=== PATIENT | female | born 1985 | race Caucasian/White ===

== ENCOUNTER 2017-11-13 16:02 | Emergency (ER) | payer OTHER ==
[~2017-11-13] VITALS: Ht 165.1 cm; Wt 65.9 kg
[2017-11-13 16:06] VITALS: TEMP 99.1
[2017-11-13 16:48] LABS: COLLECTION METHOD CLEAN CATCH
[2017-11-13 16:53] LABS: BASO % 0.5 % (0.0-2.0); EOS % 0.2 % (0-4.0); GRAN # 3.3 (1.4-6.5); GRAN % 61.2 % (42.2-75.2); HEMATOCRIT 42.1 % (37.0-47.0); HEMOGLOBIN 14.5 g/dl (12.5-16.0); LYMPH # 1.4 (1.2-3.4); LYMPH % 24.9 % (20.0-51.0); MEAN CELL VOLUME 86 fl (80.0-100.0); MEAN CORPUSCULAR HEMOGLOBIN 30 pg (27.0-31.0); MEAN CORPUSCULAR HGB CONC 34 g/dl (33.0-37.0); MEAN PLATELET VOLUME 10.8 fl (7.4-10.4); MONO # 0.7 (0.1-0.6); MONO % 12.8 % (1.7-9.3); PLATELET COUNT 228 K/mm3 (130-400); RED BLOOD COUNT 4.87 M/mm3 (4.10-5.30)
[2017-11-13 16:56] LABS: PH 7 (5-8); SQUAMOUS EPITHELIAL 0-2 /hpf; URINE APPEARANCE Clear; URINE BACTERIA Rare /hpf; URINE BILIRUBIN Negative (NEGATIVE); URINE BLOOD Negative (NEGATIVE); URINE COLOR Straw; URINE GLUCOSE Negative (NEGATIVE); URINE KETONE Negative (NEGATIVE); URINE LEUKOCYTE ESTERASE Negative (NEGATIVE); URINE NITRATE Negative (NEGATIVE); URINE PROTEIN(semi-quant) Negative (NEGATIVE); URINE RBC 0-2 /hpf; URINE UROBILINOGEN Negative (NEGATIVE)
[2017-11-13 17:10] LABS: TRICYCLIC ANTIDEPRESS URINE NEGATIVE
[2017-11-13 17:10] LABS: ACETAMINOPHEN < 10 ug/mL (10-30); ALANINE AMINOTRANSFERASE 22 U/L (9-52); ALBUMIN 4.3 gm/dL (3.5-5.0); ALCOHOL(ethanol),MEDICAL < 10 mg/dL; ALKALINE PHOSPHATASE 45 U/L (50-136); ANION GAP 8 mmol/L (7-16); AST,SGOT 26 U/L (15-37); BILIRUBIN,TOTAL 0.4 mg/dL (0.0-1.0); BLOOD UREA NITROGEN 9 mg/dL (7-17); CALCIUM 9.2 mg/dL (8.4-10.2); CARBON DIOXIDE 28 mmol/L (22-30); CHLORIDE 101 mmol/L (98-107); CREATININE, serum 0.69 mg/dL (0.52-1.25); GLUCOSE 96 mg/dL (74-106); POTASSIUM 3.5 mmol/L (3.4-5.0); SALICYLATE < 1.0 mg/dL; SODIUM 137 mmol/L (137-145); TOTAL PROTEIN 7.7 gm/dL (6.4-8.2)
[2017-11-13] MEDS ORDERED: LEXAPRO20 MG PO (19:32)
[2017-11-13] MEDS ORDERED: ATIVAN 0.50.5 MG/TAB PO (19:33)
[2017-11-13 20:11] VITALS: BP 117/65; PULSE 68
== END 2017-11-13 20:11 | disposition home or self-care (01) ==
LOC: COL.ER 16:02
PROVIDERS: Emergency Medicine
DX: R45.851 Suicidal ideations (principal); F32.9 Major depressive disorder, single episode, unspecified

== ENCOUNTER 2020-06-24 22:51 | Observation (INO) | payer BC ==
[~2020-06-24] VITALS: Ht 165.1 cm; Wt 81.8 kg
[~2020-06-24 22:51] MED LIST: ATIVAN 0.50.5 MG/TAB PO; LEXAPRO20 MG PO
[2020-06-25] VITALS (8 sets, daily range): BP systolic 98–122; BP diastolic 64–79; PULSE 65–105; TEMP 97.7
[2020-06-25 00:07] LABS: BASO % 0.4 % (0.0-2.0); EOS # 0.1 (0.0-0.7); EOS % 0.5 % (0-4.0); GRAN # 6.5 (1.4-6.5); GRAN % 69.7 % (42.2-75.2); HEMATOCRIT 38.5 % (37.0-47.0); HEMOGLOBIN 13.5 g/dl (12.5-16.0); LYMPH # 2.1 (1.2-3.4); LYMPH % 22.1 % (20.0-51.0); MEAN CELL VOLUME 82 fl (80.0-100.0); MEAN CORPUSCULAR HEMOGLOBIN 29 pg (27.0-31.0); MEAN CORPUSCULAR HGB CONC 35 g/dl (33.0-37.0); MEAN PLATELET VOLUME 10.3 fl (7.4-10.4); MONO # 0.7 (0.1-0.6); PLATELET COUNT 240 K/mm3 (130-400); REDCELL DISTRIBUTION WIDTH-CV 12.3 % (11.5-14.5)
[2020-06-25 00:28] LABS: ALBUMIN 4.3 gm/dL (3.5-5.0); BILIRUBIN,TOTAL 0.2 mg/dL (0.0-1.0); C-REACTIVE PROTEIN 0.7 mg/dL (0.0-0.9); CALCIUM 9.3 mg/dL (8.4-10.2); CREATININE, serum 0.59 (0.52-1.25); TOTAL PROTEIN 7.9 gm/dL (6.4-8.2)
--- NOTE | 2020-06-25 02:15 | NUR ---
0215 TO 222 PER BED FROM OR POST D&C. TIRED BUT AWAKE AND ALERT. IV INFUSING. NO VAG BLEEDING NOTED. ORIENTED TO ROOM
--- NOTE | 2020-06-25 05:15 | NUR ---
0515 IV TO INT. UP TO BR WITH ASSIST AND VOIDED 100CC. PERICARE DONE. RETURNED TO BED WITH NO C/O PAIN. CRACKERS AND JUICE TAKEN
[2020-06-25] MEDS ORDERED: MOTRIN 800800 MG/TAB PO (08:32)
--- NOTE | 2020-06-25 09:53 | NUR ---
Initial visit; Patient thanked Finance Controller for looking in on her, offering comfort and God's blessings. Finance Controller will keep patient in her prayers.
== END 2020-06-25 09:55 | disposition home or self-care (01) ==
LOC: COL.ER 22:51 → OB 06-25 00:56
PROVIDERS: Emergency Medicine; ADMIT Obstetrics & Gynecology
DX: O03.4 Incomplete spontaneous abortion without complication (principal); O99.341 Other mental disorders complicating pregnancy, first trimester; F32.9 Major depressive disorder, single episode, unspecified
CPT/HCPCS: G0378; J1885; J2250; J2405; J2704; J3010; J7030; J7120

== ENCOUNTER 2021-04-01 20:31 | Outpatient (CLI) | payer BC ==
[~2021-04-01] VITALS: Ht 165.1 cm; Wt 102.3 kg
[~2021-04-01 20:31] MED LIST changes: +MOTRIN 800800 MG/TAB PO
--- NOTE | 2021-04-01 20:45 | NUR ---
G2L0 at 34 weeks and 6 days arrives to unit with complaint of headache. Was seen in the office today for evaluation of pre-eclampsia and had labwork done. Pt reports good movment, denies contractions, LOF, or vaginal bleeding. Denies RUQ pain and did have changes in her vision earlier today. Pt has pitting edema to bilateral lower extremeties that she says is not worse than it has been. Pt oriented to room, call light within reach, bed in low and locked position. US and toco explained and applied. Vital signs obtained. Admission assessment started.
[2021-04-01 21:30] VITALS: BP 146/77; PULSE 88; TEMP 98.4
[2021-04-01 22:00] VITALS: BP 143/69; PULSE 87
[2021-04-01] MEDS ORDERED: SYNTHROID0.125 MG/T PO (22:18)
[2021-04-01] MEDS ORDERED: ASPIRIN 81M81 MG/TA2 PO (22:19)
[2021-04-01] MEDS ORDERED: PRISTIQ100 MG PO (22:19)
[2021-04-01] MEDS ORDERED: LAMICTAL 100MG100 MG PO (22:20)
[2021-04-01] MEDS ORDERED: TRANDATE 100MG100 MG PO (22:20)
[2021-04-01] MEDS ORDERED: FERROUSAL325 MG PO (22:22)
[2021-04-01] MEDS ORDERED: PRENATAL TABLET PO (22:22)
[2021-04-01 22:30] VITALS: BP 135/68; PULSE 86
[2021-04-01 22:42] LABS: COLLECTION METHOD CLEAN CATCH
--- NOTE | 2021-04-01 22:45 | NUR ---
Pt reports headache is about the same. [place] shows contractions every 4 minutes, pt unaware of contractions.
[2021-04-01 22:54] LABS: PH 7 (5-8); URINE APPEARANCE Clear (CLEAR/HAZY); URINE BILIRUBIN Negative (NEGATIVE); URINE BLOOD Negative (NEGATIVE); URINE COLOR Yellow (YELLOW); URINE GLUCOSE Negative (NEGATIVE); URINE KETONE Negative (NEGATIVE); URINE LEUKOCYTE ESTERASE Negative (NEGATIVE); URINE NITRATE Negative (NEGATIVE); URINE PROTEIN(semi-quant) 2+ (NEGATIVE); URINE UROBILINOGEN Negative (NEGATIVE)
[2021-04-01 22:55] LABS: URINE BACTERIA Moderate /hpf (NONE SEEN); URINE RBC 0-2 /hpf (0-2); URINE WBC 0-2 /hpf (0-2)
[2021-04-01 23:00] VITALS: BP 159/77; PULSE 81
--- NOTE | 2021-04-01 23:20 | NUR ---
Discharge instructions reviewed with patient, verbalized understanding. Pt seen ambulating off unit with spouse.
== END 2021-04-01 23:20 | disposition home or self-care (01) ==
LOC: LDRO 20:31 → LDR 21:17 → LDRO 23:20
PROVIDERS: Student in an Organized Health Care Education/Training Program
DX: O26.899 Other specified pregnancy related conditions, unspecified trimester (principal); R51.9 Headache, unspecified; Z3A.34 34 weeks gestation of pregnancy

== ENCOUNTER 2021-05-17 20:57 | Emergency (ER) | payer BC ==
[~2021-05-17] VITALS: Ht 165.1 cm; Wt 86.4 kg
[~2021-05-17 20:57] MED LIST changes: +ASPIRIN 81M81 MG/TA2 PO; +FERROUSAL325 MG PO; +LAMICTAL 100MG100 MG PO; +PERCOCET 325 MG1 TA2 PO; +PRENATAL TABLET PO; +PRISTIQ100 MG PO; +SYNTHROID0.125 MG/T PO; +TRANDATE 100MG100 MG PO; +TRANDATE 200MG200 MG PO
[2021-05-17 21:03] VITALS: TEMP 98.9
[2021-05-17 21:53] LABS: BASO % 0.5 % (0.0-2.0); EOS # 0.1 K/mm3 (0.0-0.7); EOS % 1.7 % (0.0-4.0); GRAN # 3.4 K/mm3 (1.4-6.5); GRAN % 59.2 % (42.2-75.2); HEMATOCRIT 42.6 % (37.0-47.0); HEMOGLOBIN 14.6 g/dl (12.5-16.0); LYMPH # 1.7 K/mm3 (1.2-3.4); LYMPH % 30.1 % (20.0-51.0); MEAN CELL VOLUME 85 fl (80.0-100.0); MEAN CORPUSCULAR HEMOGLOBIN 29 pg (27-31); MEAN CORPUSCULAR HGB CONC 34 g/dl (33.0-37.0); MEAN PLATELET VOLUME 9.6 fl (7.4-10.4); MONO # 0.5 K/mm3 (0.1-0.6); MONO % 8.2 % (1.7-9.3); PLATELET COUNT 296 K/mm3 (130-400); REDCELL DISTRIBUTION WIDTH-CV 12.8 % (11.5-14.5)
[2021-05-17 22:12] LABS: ALBUMIN 4.1 gm/dL (3.5-5.0); BILIRUBIN,TOTAL 0.2 mg/dL (0.2-1.2); CALCIUM 10.4 mg/dL (8.4-10.2); CREATININE, serum 0.84 mg/dL (0.57-1.11); POTASSIUM 3.9 mmol/L (3.5-4.5); TOTAL PROTEIN 8.7 gm/dL (6.2-8.1)
[2021-05-17] MEDS ORDERED: BONINE25 MG PO (23:00)
[2021-05-17 23:10] VITALS: BP 123/94; PULSE 94
== END 2021-05-17 23:20 | disposition home or self-care (01) ==
LOC: COL.ER 20:57
PROVIDERS: Personal Emergency Response Attendant
DX: O90.89 Other complications of the puerperium, not elsewhere classified (principal); R42 Dizziness and giddiness
CPT/HCPCS: J2550; J7030